=== PATIENT | female | born 1925 | race Asian ===

== ENCOUNTER 2017-03-05 12:51 | Inpatient (IN) | payer MEDICARE, BC ==
[~2017-03-05] VITALS: Ht 160 cm; Wt 47.0 kg
[2017-03-05] MEDS ORDERED: ALBU18HF INH (13:08)
[2017-03-05] MEDS ORDERED: CYCL1DRO EACHEYE (13:10)
[2017-03-05] MEDS ORDERED: methylPREDNISolone SOD SUCC 125 MG/2 ML ONE (13:21)
[2017-03-05] MEDS ORDERED: methylPREDNISolone SOD SUCC 125 MG/2 ML IVP ONE (13:30)
[2017-03-05] MEDS ORDERED: SODIUM CHLORIDE FLUSH 10ML SYR IVF ONE (13:30)
[2017-03-05 13:48] LABS: BLOOD UREA NITROGEN 11 mg/dL (7-18)
[2017-03-05 13:53] LABS: ASPARTATE AMINO TRANSFERASE 31 U/L (15-37)
[2017-03-05] MEDS ORDERED: ALBUTEROL/IPRATROPIUM 2.5MG/0.5MG, 3 ML ONE (13:57)
[2017-03-05] MEDS: ALBUTEROL/IPRATROPIUM 2.5MG/0.5MG, 3 ML NPPB SCH ×2 (14:01→14:07)
[2017-03-05] MEDS ORDERED: CEFTRIAXONE PMX 1GM/50ML 50 ML IVPB ONE (15:00)
[2017-03-05] MEDS ORDERED: AZITHROMYCIN 500 MG in SODIUM CHLORIDE 0.9% 250 ML IVPB ONE (15:00)
[2017-03-05] MEDS ORDERED: CEFTRIAXONE PMX 1GM/50ML 50 ML ONE (15:18)
[2017-03-05] MEDS ORDERED: SODIUM CHLORIDE FLUSH 10ML SYR IVF PRN (15:30)
[2017-03-05 16:08] VITALS: BP 150/78
[2017-03-05] MEDS ORDERED: SODIUM CHLORIDE 0.9% 1,000 ML IV SCH (16:29)
[2017-03-05] MEDS: CEFTRIAXONE PMX 1GM/50ML 50 ML IV SCH (16:30)
[2017-03-05] MEDS ORDERED: DOCUSATE 100 MG CAPSULE PO PRN (16:30)
[2017-03-05] MEDS ORDERED: ONDANSETRON ODT 4 MG PO PRN (16:30)
[2017-03-05] MEDS ORDERED: DOXYCYCLINE 100 MG in DEXTROSE 5% 250 ML IV SCH (16:30)
[2017-03-05] MEDS ORDERED: ACETAMINOPHEN 325 MG TABLET PO PRN (16:30)
[2017-03-05] MEDS: ALBUTEROL SULFATE 2.5 MG/3 ML NPPB SCH ×2 (16:50→19:35)
[2017-03-05] MEDS ORDERED: ALBUTEROL SULFATE 2.5 MG/3 ML ONE (17:06)
[2017-03-05] MEDS: ENOXAPARIN 30 MG/0.3 ML SQ SCH (18:50)
[2017-03-05 19:27] VITALS: BP 116/62
[2017-03-05 19:50] VITALS: BP 116/62
[2017-03-05] MEDS ORDERED: FAMOTIDINE 20 MG TABLET PO SCH (21:00)
[2017-03-05] MEDS: DOXYCYCLINE 100MG TABLET PO SCH (21:23)
[2017-03-06 02:26] VITALS: BP 119/69
[2017-03-06 05:32] LABS: BLOOD UREA NITROGEN 17 mg/dL (7-18)
[2017-03-06 06:17] VITALS: BP 113/69
[2017-03-06] MEDS: ALBUTEROL SULFATE 2.5 MG/3 ML NPPB SCH ×4 (07:18→19:49)
[2017-03-06] MEDS: FAMOTIDINE 20 MG TABLET PO SCH (08:37)
[2017-03-06] MEDS: DOXYCYCLINE 100MG TABLET PO SCH ×2 (08:38→20:59)
[2017-03-06] MEDS ORDERED: TEMPLATE NON-FORMULARY MED. (Cyclosporine (Restasis) 1 DROP) EACHEYE SCH (09:00)
[2017-03-06] MEDS ORDERED: OMNIPAQUE 350 MG/ML, 100ML BOTTLE ONE (13:25)
[2017-03-06 14:39] VITALS: BP 128/67
[2017-03-06] MEDS: ENOXAPARIN 30 MG/0.3 ML SQ SCH (16:39)
[2017-03-06] MEDS: CEFTRIAXONE PMX 1GM/50ML 50 ML IV SCH (16:39)
[2017-03-06 19:00] VITALS: BP 131/63
[2017-03-07 02:03] VITALS: BP 124/73
[2017-03-07 05:33] LABS: BLOOD UREA NITROGEN 20 mg/dL (7-18)
[2017-03-07 07:23] VITALS: BP 134/76
[2017-03-07] MEDS: ALBUTEROL SULFATE 2.5 MG/3 ML NPPB SCH ×4 (07:28→19:45)
[2017-03-07] MEDS: DOXYCYCLINE 100MG TABLET PO SCH ×2 (08:53→21:16)
[2017-03-07] MEDS: FAMOTIDINE 20 MG TABLET PO SCH (08:53)
[2017-03-07 15:59] VITALS: BP 122/75
[2017-03-07] MEDS: CEFTRIAXONE PMX 1GM/50ML 50 ML IV SCH (16:14)
[2017-03-07] MEDS: ENOXAPARIN 30 MG/0.3 ML SQ SCH (16:14)
[2017-03-07 19:10] VITALS: BP 143/96
[2017-03-08 02:03] VITALS: BP 132/69
[2017-03-08 05:53] LABS: ASPARTATE AMINO TRANSFERASE 49 U/L (15-37); BLOOD UREA NITROGEN 22 mg/dL (7-18)
[2017-03-08] MEDS: ALBUTEROL SULFATE 2.5 MG/3 ML NPPB SCH ×2 (06:50→10:20)
[2017-03-08 08:15] VITALS: BP 131/72
[2017-03-08 08:32] VITALS: BP 137/71
[2017-03-08] MEDS: FAMOTIDINE 20 MG TABLET PO SCH (08:36)
[2017-03-08] MEDS: DOXYCYCLINE 100MG TABLET PO SCH (08:36)
[2017-03-08] MEDS ORDERED: CEFD300C37 PO (11:29)
[2017-03-08] MEDS ORDERED: PRED10TA PO (11:29)
[2017-03-08] MEDS ORDERED: DOXY100T PO (11:29)
[2017-03-08] MEDS ORDERED: LACT1CAP24 PO (11:29)
[2017-03-08] MEDS ORDERED: FUROSEMIDE 20 MG TABLET PO ONE (11:30)
== END 2017-03-08 14:00 | disposition home health service (06) | DRG 871 ==
LOC: ED 13:17 → EDIP 15:12 → 3NE 16:04 → DCLOUNGE 03-08 13:15
PROVIDERS: ATTEND Internal Medicine
DX: A41.9 Sepsis, unspecified organism (principal); J96.21 Acute and chronic respiratory failure with hypoxia; J15.9 Unspecified bacterial pneumonia; E44.0 Moderate protein-calorie malnutrition; I50.32 Chronic diastolic (congestive) heart failure; N39.0 Urinary tract infection, site not specified; Z68.1 Body mass index [BMI] 19.9 or less, adult; B96.20 Unspecified Escherichia coli [E. coli] as the cause of diseases classified elsewhere; D63.8 Anemia in other chronic diseases classified elsewhere; I27.2 Other secondary pulmonary hypertension; J84.112 Idiopathic pulmonary fibrosis; K21.9 Gastro-esophageal reflux disease without esophagitis; Z66 Do not resuscitate
CPT/HCPCS: 36415; 71010; 71020; 71275; 80048; 80053; 81001; 83605; 83735; 83880; 84100; 84145; 84484; 85025; 85379; 85610; 85651; 85730; 86140; 87040; 87070; 87077; 87086; 87186; 87205; 93005; 93306; 93970; 94640; 96374; J0456; J0696; J1650; J7613; J7620; Q9967; J2930; J7030; J7050; J7512

== ENCOUNTER → 2017-04-30 | Outpatient (CLI) | payer MEDICARE, BC ==
[~2017-04-30] MED LIST: ALBU18HF INH; CEFD300C37 PO; CYCL1DRO EACHEYE; DOXY100T PO; LACT1CAP24 PO; PRED10TA PO
== END | disposition home or self-care (01) ==
LOC: CFH 14:59
PROVIDERS: ATTEND Nurse Practitioner
DX: J47.9 Bronchiectasis, uncomplicated (principal); J84.10 Pulmonary fibrosis, unspecified
CPT/HCPCS: 71250

== ENCOUNTER 2017-08-31 22:03 | Emergency (ER) | payer MEDICARE, BC ==
[~2017-08-31] VITALS: Ht 152.4 cm; Wt 49.0 kg
== END 2017-09-01 00:28 | disposition expired ==
LOC: ED 22:18
DX: I46.9 Cardiac arrest, cause unspecified (principal)
CPT/HCPCS: 99285